=== PATIENT | male | born 1990 | race American Indian/Alaskan Native ===

== ENCOUNTER 2018-01-24 12:41 | Emergency (ER) | payer MEDICARE ==
[2018-01-24] MEDS ORDERED: NACL 0.9% 1000 ML 1,000 ML IV ONE (12:49)
[2018-01-24 13:59] LABS: Basophils % (Auto) 0.4 % (0.0-1.8); Eosinophils % (Auto) 0.9 % (0.0-4.3); Hematocrit 48.5 % (35.5-45.6); Hemoglobin 16.3 gm/dl (11.8-15.2); Lymphocytes # (Auto) 1.2 K/mm3 (1.2-5.4); Lymphocytes % (Auto) 25.9 % (13.4-35.0); Mean Corpuscular HGB Conc 34 % (32-34); Mean Corpuscular Hemoglobin 33 pg (28-32); Mean Corpuscular Volume 97 fl (84-94); Monocytes # (Auto) 0.5 K/mm3 (0.0-0.8); Monocytes % (Auto) 9.7 % (0.0-7.3); Platelet Count 221 K/mm3 (140-440); Red Blood Count 5.03 M/mm3 (3.65-5.03); Red Cell Distribution Width 14.4 % (13.2-15.2)
[2018-01-24] MEDS ORDERED: BENTYL IM ONE (13:59)
[2018-01-24] MEDS ORDERED: PEPCID IV ONE (13:59)
[2018-01-24] MEDS ORDERED: ZOFRAN IV ONE (13:59)
--- NOTE | 2018-01-24 14:01 | Emergency Department Report ---
Blank Doc - Documentation Documentation: Patient is a 27-year-old Male past history of HIV positive who is coming in with 2-3 days of nausea vomiting diarrhea and abdominal pain. Patient has mild discomfort in the right lower quadrant yesterday but now for feels as though it' s more diffuse. Patient denies any fever or hematochezia or hematemesis. Patient will have labs drawn and CT abdomen and pelvis will be done.
[2018-01-24 14:17] LABS: Alanine Aminotransferase 28 units/L (7-56); Albumin 4.6 g/dL (3.9-5); BUN/Creatinine Ratio 16; Blood Urea Nitrogen 13 mg/dL (9-20); Calcium 9.7 mg/dL (8.4-10.2); Hemolysis Index 12
--- NOTE | 2018-01-24 15:24 | Emergency Department Report ---
Vomiting/Diarrhea - HPI Chief Complaint: Abdominal Pain Stated Complaint: STOMACH PAINS Time Seen by Provider: 01/24/18 13:50 Duration: 2 Days Severity: moderate Nausea/Vomiting Severity: Moderate Diarrhea Severity: Mild Pain Location: LLQ Pain Severity: Moderate Symptoms: Yes Watery Diarrhea, Yes Able to Tolerate Fluids, No Bloody diarrhea, No Fever, No Recent Unusual Foods, No Recent Untreated Water, No Recent use of Antibiotics, No Family w/ Similar Symptoms, No Contacts w/ Similar Symptoms, No Rash, No Hematuria, No Recent URI Symptoms Other History: This is a 27-year-old -[place] Male who presents with nausea, vomiting, diarrhea, and right lower quadrant pain that is radiating into the left lower side for 2-3 days. Past medical history of HIV. Patient has mild discomfort in the right lower quadrant yesterday but now he feels as though it's more diffuse. Patient denies any fever or hematochezia or hematemesis. Patient admits to having diarrhea yesterday and increased loss of appetite. He is currently not taking any medication including an HIV medication because he has been unable to hold liquids and fluids down. ED Review of Systems ROS: Stated complaint: STOMACH PAINS Other details as noted in HPI Constitutional: denies: chills, fever Respiratory: denies: cough, shortness of breath, wheezing Cardiovascular: denies: chest pain, palpitations Gastrointestinal: abdominal pain (diffuse abdominal pain increased on right lower quadrant), nausea, vomiting, diarrhea. denies: constipation, hematemesis , melena, hematochezia Skin: denies: rash, lesions Neurological: denies: headache, weakness, numbness, paresthesias Psychiatric: denies: anxiety, depression ED Past Medical Hx - Past Medical History Previous Medical History?: Yes Hx HIV: Yes - Surgical History Past Surgical History?: No - Social History Smoking Status: Current Every Day Smoker Substance Use Type: None - Medications Home Medications: Home Medications Medication Instructions Recorded Confirmed Last Taken Type Ciprofloxacin HCl [Cipro] 500 mg PO BID #14 tablet 01/24/18 Unknown Rx Ondansetron [Zofran Odt] 4 mg PO TID PRN #10 tab.rapdis 01/24/18 Unknown Rx metroNIDAZOLE [Metronidazole] 500 mg PO DAILY 7 Days #14 tablet 01/24/18 Unknown Rx Vomiting Diarrhea Exam - Exam General: Vital signs noted. No distress. Alert and acting appropriately. HEENT: Yes Moist Mucous Membranes, No Pharyngeal Erythema, No Pharyngeal Exudates, No Rhinorrhea, No Conjuctival Injection, No Frontal Tenderness, No Maxillary Tenderness Neck: No Adenopathy, No Rigidity Lungs: Yes Clear Lung Sounds, Yes Good Air Exchange, No Wheezes, No Stridor, No Cough, No Nasal Flaring, No Retractions, No Use of Accessory Muscles Heart exam: Regular: Yes, Murmur: No, Tachycardia: No Abdomen: Tenderness: Yes (right lower quadrant and left lower quadrant, no rigidity or rebound tenderness), Peritoneal Signs: No, Distention: No, Hyperactive Bowel sounds: No Skin exam: Rash: No, Edema: No, Normal turgor: Yes Neurologic: Alert and oriented, no deficits. Musculoskeletal: Unremarkable. ED Course Vital Signs 01/24/18 12:44 Temperature 97.6 F Pulse Rate 57 L Respiratory 16 Rate Blood Pressure 134/72 O2 Sat by Pulse 99 Oximetry ED Medical Decision Making - Lab Data Result diagrams: 01/24/18 13:45 01/24/18 13:45 - Radiology Data Radiology results: report reviewed PROCEDURE: CT ABDOMEN PELVIS W CON TECHNIQUE: Computerized axial tomography of the abdomen and pelvis was performed after the IV injection of iodinated nonionic contrast. HISTORY: abd pain w NVD HIV positive COMPARISON: No prior studies are available for comparison. FINDINGS: Lower Lung brown: No focal abnormality seen. Upper Abdomen: The liver, the gallbladder, the pancreas adrenal glands and spleen are unremarkable. Kidneys, Ureters and Urinary bladder: No abnormality is seen. Retroperitoneum: Abdominal aorta appears normal. Nonspecific subcentimeter lymph nodes are seen in the retroperitoneum. No pathologically enlarged lymph nodes are identified. Bowel: Mucosal folds in the proximal small bowel are thicker than expected. Bowel loops are not distended. I cannot exclude a mild nonspecific enteritis. Colon is unremarkable. Normal-appearing appendix is seen in the right lower quadrant. No evidence of bowel obstruction ascites or free intraperitoneal gas. Reproductive organs: Prostate gland does not appear to be enlarged. Other: No acute bony abnormalities are seen. IMPRESSION: Mild mucosal prominence proximal small bowel as described. I cannot exclude a mild nonspecific enteritis. No other abnormalities are seen. - Medical Decision Making This is a 27 y.o. male that presents with nausea, vomiting, diarrhea, and diffuse abdominal pain x 3 days. Patient is stable and was examined by me. Vitals normal. Obtained CMP, CBC, UA, and CT of abdomen. Labs are unremarkable. Mild mucosal prominence proximal small bowel as described. I cannot exclude a mild nonspecific enteritis. No other abnormalities are seen. Given bentyl, pepcid, zofran, & NS bolus once in ER. Plan to start zofran, cipro, and metronidazole for enteritis. Discussed plan with patient and agreed to plan. No further questions noted by the patient. Discharged home in stable condition. Follow up with PCP in 2-3 days. Critical care attestation.: If time is entered above; I have spent that time in minutes in the direct care of this critically ill patient, excluding procedure time. ED Disposition Clinical Impression: Enteritis, Diffuse abdominal pain Disposition: - TO HOME OR SELFCARE Is pt being admited?: No Does the pt Need Aspirin: No Condition: Stable Instructions: Gastroenteritis (ED), Acute Nausea and Vomiting (ED) Additional Instructions: Complete antibiotics as prescribed. Avoid drinking alcohol while taking antibiotics and up to 24 hours after completion. Frequent hand washing is important to reduce spread. Prompt disinfection of contaminated surfaces with household chlorine bleach- based fishing tool supervisor and washing of soiled clothing and bedding should be advised. If food or water is thought to be contaminated, it should be avoided. Increase fluid intake. Drinks high in sugars such as carbonated soft drinks, fruit juice, and highly sugared liquids should be avoided. Follow-up with primary care provider in 2-3 days. Prescriptions: Ciprofloxacin HCl [Cipro] 500 mg PO BID #14 tablet metroNIDAZOLE [Metronidazole] 500 mg PO DAILY 7 Days #14 tablet Ondansetron [Zofran Odt] 4 mg PO TID PRN #10 tab.rapdis PRN Reason: Nausea And Vomiting Referrals: [facility] [Outside] - 3-5 Days [facility] [Outside] - 3-5 Days [facility] [Outside] - 3-5 Days Forms: Work/School Release Form(ED) Time of Disposition: 17:21 Print Language: [place]
--- NOTE | 2018-01-24 16:28 | Cat Scan Report ---
FINAL REPORT PROCEDURE: CT ABDOMEN PELVIS W CON TECHNIQUE: Computerized axial tomography of the abdomen and pelvis was performed after the IV injection of iodinated nonionic contrast. HISTORY: abd pain w NVD HIV positive COMPARISON: No prior studies are available for comparison. FINDINGS: Lower Lung brown: No focal abnormality seen. Upper Abdomen: The liver, the gallbladder, the pancreas adrenal glands and spleen are unremarkable. Kidneys, Ureters and Urinary bladder: No abnormality is seen. Retroperitoneum: Abdominal aorta appears normal. Nonspecific subcentimeter lymph nodes are seen in the retroperitoneum. No pathologically enlarged lymph nodes are identified. Bowel: Mucosal folds in the proximal small bowel are thicker than expected. Bowel loops are not distended. I cannot exclude a mild nonspecific enteritis. Colon is unremarkable. Normal-appearing appendix is seen in the right lower quadrant. No evidence of bowel obstruction ascites or free intraperitoneal gas. Reproductive organs: Prostate gland does not appear to be enlarged. Other: No acute bony abnormalities are seen. IMPRESSION: Mild mucosal prominence proximal small bowel as described. I cannot exclude a mild nonspecific enteritis. No other abnormalities are seen.
[2018-01-24 17:33] VITALS: BP 122/62
== END 2018-01-24 17:31 | disposition home or self-care (01) ==
LOC: ED 12:41
DX: K52.9 Noninfective gastroenteritis and colitis, unspecified (principal); F17.200 Nicotine dependence, unspecified, uncomplicated
CPT/HCPCS: 36415; 74177; 80053; 85025; 96361; 96372; 96374; 96375; 99284; J0500; J2405; J7030; Q9967